=== PATIENT | female | born 1960 | race Caucasian/White ===

== ENCOUNTER 2018-04-21 11:13 | Emergency (ER) | payer OTHER ==
[~2018-04-21] VITALS: Ht 167.6 cm; Wt 104.3 kg
[~2018-04-21 11:13] MED LIST: ATENOLOL25 GM MC; CELEBREX100 MG PO; DIOVAN160 M1; DIOVAN40 MG PO; GLIPIZIDE2.5 MG/BO1; GLIPIZIDE5 GM MC; GLUMETZA1000 MG PO; KLONOPIN1 MG/TAB PO; LAMICTAL100 MG PO; MEDROL4 MG PO; METFORMIN HCL500 MG; WELLBUTRIN XL300 MG PO
[2018-04-21] MEDS ORDERED: ZOLOFT25 MG (11:35)
== END 2018-04-21 13:47 | disposition home or self-care (01) ==
LOC: ER 11:13
DX: S91.241A Puncture wound with foreign body of right great toe with damage to nail, initial encounter (principal); W50.0XXA Accidental hit or strike by another person, initial encounter; Y93.89 Activity, other specified; Y92.89 Other specified places as the place of occurrence of the external cause; Y99.8 Other external cause status

== ENCOUNTER 2019-06-30 06:29 | Emergency (ER) | payer OTHER ==
[~2019-06-30] VITALS: Ht 167.6 cm; Wt 95.3 kg
[~2019-06-30 06:29] MED LIST changes: +ZOLOFT25 MG
[2019-06-30] MEDS ORDERED: AMBIEN10 MG (06:49)
== END 2019-06-30 11:25 | disposition home or self-care (01) ==
LOC: ER 06:29
DX: M54.5 Low back pain (principal); M62.838 Other muscle spasm

== ENCOUNTER 2021-08-17 08:15 | Emergency (ER) | payer OTHER ==
[~2021-08-17] VITALS: Ht 175.3 cm; Wt 99.3 kg
[~2021-08-17 08:15] MED LIST changes: +AMBIEN10 MG
[2021-08-17] MEDS ORDERED: FOLIC ACID0.8 M1 PO (08:33)
[2021-08-17] MEDS ORDERED: [UNRECOGNIZED DRUG - OTHER] (08:35)
[2021-08-17] MEDS ORDERED: PEPCID AC20 MG PO (12:48)
[2021-08-17] MEDS ORDERED: NORFLEX100MG PO (12:48)
[2021-08-17] MEDS ORDERED: LEVSIN0.125 MG PO (12:48)
[2021-08-17] MEDS ORDERED: KETO10TA2 PO (12:48)
== END 2021-08-17 13:15 | disposition home or self-care (01) ==
LOC: ER 08:15
DX: K29.70 Gastritis, unspecified, without bleeding (principal); M54.89 Other dorsalgia; M54.2 Cervicalgia; M54.6 Pain in thoracic spine

== ENCOUNTER 2023-06-12 17:08 | Emergency (ER) | payer OTHER ==
[~2023-06-12] VITALS: Ht 167.6 cm; Wt 99.3 kg
[~2023-06-12 17:08] MED LIST changes: +FOLIC ACID0.8 M1 PO; +KETO10TA2 PO; +LEVSIN0.125 MG PO; +NORFLEX100MG PO; +PEPCID AC20 MG PO; +[UNRECOGNIZED DRUG - OTHER]
[2023-06-12] MEDS ORDERED: GLUMETZA500 MG (17:19)
[2023-06-12] MEDS ORDERED: LANTUS SOL100 UNIT/1 SQ (17:20)
[2023-06-12] MEDS ORDERED: CLORAZEPATE D3.75 MG PO (17:20)
[2023-06-12] MEDS ORDERED: RESTORIL15 MG (17:21)
== END 2023-06-12 22:20 | disposition home or self-care (01) ==
LOC: ER 17:08
DX: K29.70 Gastritis, unspecified, without bleeding (principal); M54.50 Low back pain, unspecified; Z88.0 Allergy status to penicillin; Z88.8 Allergy status to other drugs, medicaments and biological substances; Z91.018 Allergy to other foods

== ENCOUNTER 2023-07-17 19:37 | Emergency (ER) | payer OTHER ==
[~2023-07-17] VITALS: Ht 167.6 cm; Wt 104.3 kg
[~2023-07-17 19:37] MED LIST changes: +CLORAZEPATE D3.75 MG PO; +GLUMETZA500 MG; +LANTUS SOL100 UNIT/1 SQ; +RESTORIL15 MG
[2023-07-17] MEDS ORDERED: LIPITOR20 MG PO (19:48)
== END 2023-07-17 22:00 | disposition home or self-care (01) ==
LOC: ER 19:37
DX: R51.9 Headache, unspecified (principal); E11.9 Type 2 diabetes mellitus without complications; Z79.84 Long term (current) use of oral hypoglycemic drugs; Z88.0 Allergy status to penicillin; Z88.2 Allergy status to sulfonamides
CPT/HCPCS: 96372; 99284; J1885